=== PATIENT | female | born 1930 | race Caucasian/White ===

== ENCOUNTER 2017-07-04 14:36 | Emergency (ER) | payer MEDICARE ==
[2017-07-04 15:06] VITALS: BP 174/90
--- NOTE | 2017-07-04 15:30 | UC ---
Lower Extremity/Ankle HPI - HPI Summary HPI Summary: On Wednesday patient Road in the back of a car from [facility] to [facility] Wednesday she was up on her legs most the day and Wednesday night she was having extreme pain in her legs cramping in the back and lateral of her left calf. Patient has a niece who is a nurse who looked at it and said that she was very concerned about a DVT patient's here for evaluation of DVT. - History of Current Complaint Chief Complaint: UCLowerExtremity Stated Complaint: HURT L FOOT Time Seen by Provider: 07/04/17 14:57 Hx Obtained From: Patient, Family/Business Intelligence Architect Hx Last Menstrual Period: na ?: No Onset/Duration: Sudden Onset, Lasting Days - 1 Severity Initially: Moderate Severity Currently: Moderate Pain Intensity: 3 Pain Scale Used: 0-10 Numeric Aggravating Factor(s): Nothing Alleviating Factor(s): Nothing Able to Bear Weight: Yes - Allergies/Home Medications Allergies/Adverse Reactions: Allergies Allergy/AdvReac Type Severity Reaction Status Date / Time menthol Allergy Intermediate rash Verified 07/04/17 15:14 swelling Sulfa (Sulfonamide Allergy Intermediate Rash Verified 07/04/17 15:14 Antibiotics) amlodipine Allergy Unknown Verified 07/04/17 15:14 Reaction Details hydrochlorothiazide Allergy Unknown Verified 07/04/17 15:14 Reaction Details ramipril Allergy Unknown Verified 07/04/17 15:14 Reaction Details PMH/Surg Hx/FS Hx/Imm Hx Previously Healthy: No Cardiovascular History: Cardiac Disease, Hypertension GI/ History: Gastroesophageal Reflux Cancer History: Breast Cancer - Surgical History Surgical History: Unable to Obtain/Confirm Surgery Procedure, Year, and Place: TONSILLECTOMY AND ADENOIDECTOMY, [facility]. BILATERAL S & 0, [facility] [place] HYSTERECTOMY, [facility] [place]. LAPAROSCOPIC CHOLECYSTECTOMY, [facility] [place]. 2004 RIGHT BREAST MASTECTOMY WITH SENTINEL LYMPH NODE EXCISION, [facility] [place]. 2005 COLONOSCOPY, [facility] [place]. 2006 CARDIAC CATHERIZATION, [facility] [place]. 2006 QUADRUPLE BYPASS, [facility] - Family History Family History: Daughter with DVT - Social History Occupation: Retired Lives: Alone Alcohol Use: Rare Substance Use Type: None Smoking Status (MU): Former Smoker Type: Cigarettes Amount Used/How Often: 1 PPD FOR 28 YEARS Length of Time of Smoking/Using Tobacco: 15 years Have You Smoked in the Last Year: No When Did the Patient Quit Smoking/Using Tobacco: 1979 Review of Systems Constitutional: Negative Skin: Negative Eyes: Negative ENT: Negative Respiratory: Negative Cardiovascular: Negative Gastrointestinal: Negative Genitourinary: Negative Motor: Negative Neurovascular: Negative Musculoskeletal: Myalgia - left calf Neurological: Negative Psychological: Negative Is Patient Immunocompromised?: No All Other Systems Reviewed And Are Negative: Yes Physical Exam Triage Information Reviewed: Yes Appearance: Well-Appearing, No Pain Distress, Well-Nourished Vital Signs: Initial Vital Signs Temp 98.1 F 07/04/17 14:57 Pulse 66 07/04/17 14:57 Resp 20 07/04/17 14:57 BP 174/90 07/04/17 14:57 Pulse Ox 97 07/04/17 14:57 Vital Signs Reviewed: Yes Eye Exam: Normal Eyes: Positive: Conjunctiva Clear ENT Exam: Normal ENT: Positive: Normal ENT inspection, Hearing grossly normal, Pharynx normal. Negative: Trismus, Muffled voice, Hoarse voice Dental Exam: Normal Neck exam: Normal Neck: Positive: Supple, Nontender, No Lymphadenopathy Respiratory Exam: Normal Respiratory: Positive: Chest non-tender, Lungs clear, Normal breath sounds, No respiratory distress Cardiovascular Exam: Normal Cardiovascular: Positive: RRR, No Murmur, Pulses Normal, Brisk Capillary Refill Musculoskeletal Exam: Normal Musculoskeletal: Positive: Strength Intact, ROM Intact, Edema @ - left lower leg Neurological Exam: Normal Neurological: Positive: Alert, Muscle Tone Normal Psychological Exam: Normal Skin Exam: Normal Lower Extremity Course/Dx - Course Course Of Treatment: Patient spoke with daughter due to daughters past medical history with DVT patient's recent right knee automobile and swelling and then pain in her She's going to go to the emergency department for evaluation of DVT and ultrasound which I cannot provide here - Differential Dx/Diagnosis Provider Diagnoses: Left lower leg swelling, hypertension in poor control Discharge - Discharge Plan Condition: Stable Disposition: HOME Patient Education Materials: Leg Cramps (ED), Hypertension (ED) Referrals: Magy Peng MD [Primary Care Provider] - 1 Week Additional Instructions: Please go directly to the emergency department for further evaluation of the pain in your left lower leg
== END 2017-07-04 15:25 | disposition home or self-care (01) ==
LOC: UCEAST 14:36
DX: R22.42 Localized swelling, mass and lump, left lower limb (principal); I10 Essential (primary) hypertension; Z87.891 Personal history of nicotine dependence; Z82.49 Family history of ischemic heart disease and other diseases of the circulatory system; Z88.2 Allergy status to sulfonamides; Z88.8 Allergy status to other drugs, medicaments and biological substances
CPT/HCPCS: 99211; G0463

== ENCOUNTER 2017-07-04 15:43 | Emergency (ER) | payer MEDICARE ==
--- NOTE | 2017-07-04 16:55 | ED ---
Lower Extremity - HPI Summary HPI Summary: 87 female presents to ED from with concerns for a lower left leg DVT due to pain she had last night and swelling. States she was at her granddaughters wedding, dancing a lot and traveled to [facility]. Family is concerned for a DVT. No history of DVT. States pain was bad through the night and felt like muscle cramping in left ankle and lower calf. States she has elevated it and stretched it and pain has since subsided. Does still have some edema surrounding ankle b/l. Denies any recent injury or trauma. No bruising or redness. Is able to bear weight and walk without any pain. No other complaints. No medications taken for the pain. No cigarette use recently, former smoker. - History of Current Complaint Chief Complaint: EDExtremityLower Stated Complaint: POSS BLOOD CLOT Time Seen by Provider: 07/04/17 16:01 Hx Obtained From: Patient Hx Last Menstrual Period: na Mechanism Of Injury: Other - none Onset/Duration: Resolved - lasted hours last night, has since improved and only still swollen Severity Currently: None Pain Intensity: 0 Pain Scale Used: 0-10 Numeric Timing: Lasting Hours - since resolved Location: Is Discrete @ - left ankle lower calf Character Of Pain: Aching, Spasmodic - "Cramping" Associated Signs And Symptoms: Positive: Swelling Aggravating Factor(s): Nothing Alleviating Factor(s): Elevation Able to Bear Weight: Yes Legs: 1 - swelling today, pain last night - Allergies/Home Medications Allergies/Adverse Reactions: Allergies Allergy/AdvReac Type Severity Reaction Status Date / Time menthol Allergy Intermediate rash Verified 07/04/17 15:45 swelling Sulfa (Sulfonamide Allergy Intermediate Rash Verified 07/04/17 15:45 Antibiotics) amlodipine Allergy Unknown Verified 07/04/17 15:45 Reaction Details hydrochlorothiazide Allergy Unknown Verified 07/04/17 15:45 Reaction Details ramipril Allergy Unknown Verified 07/04/17 15:45 Reaction Details PMH/Surg Hx/FS Hx/Imm Hx Endocrine/Hematology History: Denies: Hx Diabetes, Hx Thyroid Disease Cardiovascular History: Reports: Hx Angina, Hx Coronary Artery Disease, Hx Hypercholesterolemia, Hx Hypertension Respiratory History: Reports: Hx Sleep Apnea - NO CPAP, Other Respiratory Problems/Disorders - ALL WAYS HAVE A RASPY VOICE ACCORDING TO PATIENT Denies: Hx Asthma, Hx Chronic Obstructive Pulmonary Disease (COPD) GI History: Reports: Hx Gastroesophageal Reflux Disease - CONTROL WITH MEDS Denies: Hx Ulcer Musculoskeletal History: Reports: Hx Arthritis - GENERALIZED, Other Musculoskeletal History - SCIATIC PAINS Denies: Hx Osteoporosis Sensory History: Reports: Hx Cataracts - BILATERAL, Hx Contacts or Glasses - GLASSES, Hx Glaucoma - SX OF Denies: Hx Hearing Aid Opthamlomology History: Reports: Hx Cataracts - BILATERAL, Hx Contacts or Glasses - GLASSES, Hx Glaucoma - SX OF Neurological History: Reports: Hx Migraine - HX OF, NONE FOR A LONG TIME - Cancer History Hx Chemotherapy: No Hx Radiation Therapy: No - Surgical History Surgery Procedure, Year, and Place: TONSILLECTOMY AND ADENOIDECTOMY, [facility]. BILATERAL S & 0, [facility] [place] HYSTERECTOMY, [facility] [place]. LAPAROSCOPIC CHOLECYSTECTOMY, [facility] [place]. 2004 RIGHT BREAST MASTECTOMY WITH SENTINEL LYMPH NODE EXCISION, [facility] [place] 2005 COLONOSCOPY, [facility] [place]. 2006 CARDIAC CATHERIZATION, [facility] [place]. 2006 QUADRUPLE BYPASS, [facility] Hx Anesthesia Reactions: No Infectious Disease History: Yes Infectious Disease History: Denies: Hx Hepatitis, Hx Human Immunodeficiency Virus (HIV), Traveled Outside the [place] in Last 30 Days - Family History Family History: Daughter with DVT - Social History Alcohol Use: Rare Substance Use Type: Reports: None Smoking Status (MU): Former Smoker Type: Cigarettes Amount Used/How Often: 1 PPD FOR 28 YEARS Length of Time of Smoking/Using Tobacco: 15 years Have You Smoked in the Last Year: No Review of Systems Constitutional: Negative Cardiovascular: Negative Respiratory: Negative Positive: Arthralgia, Myalgia, Edema - left ankle/lower calf Skin: Negative Neurological: Negative All Other Systems Reviewed And Are Negative: Yes Physical Exam Triage Information Reviewed: Yes Vital Signs On Initial Exam: Initial Vitals Temp Pulse Resp BP Pulse Ox 98.2 F 64 14 150/104 94 07/04/17 15:45 07/04/17 15:45 07/04/17 15:45 07/04/17 15:45 07/04/17 15:45 patient has HTN, medicated, BP at discharge improved Vital Signs Reviewed: Yes Appearance: Positive: Well-Appearing, No Pain Distress, Well-Nourished Skin: Positive: Warm, Skin Color Reflects Adequate Perfusion, Dry, Other - edema left ankle/lower calf. Negative: Cold, Numb, Cyanosis @, Pale, Erythema @ Eyes: Positive: Normal Neck: Positive: Supple Respiratory/Lung Sounds: Positive: Clear to Auscultation, Breath Sounds Present. Negative: Rales, Rhonchi, Wheezes Cardiovascular: Positive: Normal, RRR, Pulses are Symmetrical in both Upper and Lower Extremities - 2+ pedal. Negative: Murmur, Rub Musculoskeletal: Positive: Normal, Strength/ROM Intact, Edema Left - ankle lower calf/foot, Other - no crepitus, step off or obvious deformity no bruising or erythema. Negative: Limited @, Interruption @, Abnormal @, Pain @ Neurological: Positive: Normal, Sensory/Motor Intact, Alert, Oriented to Person Place, Time, Reflexes Intact, NV Bundle Intact Distally, Normal Gait Diagnostics - Vital Signs Vital Signs Temp Pulse Resp BP Pulse Ox 07/04/17 15:45 98.2 F 64 14 150/104 94 - Laboratory Lab Statement: Any lab studies that have been ordered have been reviewed, and results considered in the medical decision making process. - Ultrasound No standard instances Ultrasound Interpretation: No Acute Changes - no sonographic evidence of DVT Ultrasound Interpretation Completed By: Radiologist Re-Evaluation - Re-Evaluation First Eval Re-Evaluation Time: 17:24 Change: Unchanged - still without pain, updated on US report. patient agrees and understands plan, ready to be d/c Lower Extremity Course/Dx - Course Course Of Treatment: ultrasound obtained to rule out DVT as this was both patient and families concern. Is currently without pain. Only noteable finding on physical exam is swelling of left ankle/lower calf/foot. no other signs of trauma. no pain and FROM. Possible inflammation/strain from patient's dancing and excessive use over the weekend. Patient states she feels better and has not had pain since waking up this morning and elevating it. thinks it may be from the dancing, in whicih I agree has physical exam and area of edema is unlikely a DVT. Ultrasound negative for DVT. appears to be suffering from inflammation/ strain. RICE and analgesic. follow up with pcp tomorrow to ensure improvement. aware of worsening signs and symptoms to watch out for. applied petr wrap for compression. no other concerns at this time. good arterial supply and no concern for any infection/gout. - Diagnoses Differential Diagnosis/HQI/PQRI: Positive: DVT, Sprain, Strain, Other - edema Provider Diagnoses: Edema of left ankle, Muscle cramp, nocturnal, Foot pain, left, Hypertension, poor control Discharge - Discharge Plan Condition: Good Disposition: HOME Patient Education Materials: Arthralgia (ED), Muscle Cramp (ED) Referrals: Magy Peng MD [Primary Care Provider] - Additional Instructions: Increase fluid intake. Take tylenol/ibuprofen for pain/inflammation.. Rest, ice and elevate. Avoid over use. Follow up with PCP in 2 days to ensure improvement, sooner if needed. Also to better control HTN. Any new or worsening symptoms, as we discussed, please return to ED promptly.
--- NOTE | 2017-07-04 17:42 | RAD ---
HISTORY: Left leg pain TECHNIQUE: Multiple transverse and longitudinal ultrasound images were obtained of the veins of the left lower extremity using grayscale, color Doppler, and spectral Doppler imaging with and without compression and with augmentation. FINDINGS: VEINS: The common femoral vein, deep femoral vein, femoral vein and popliteal vein are compressible throughout their course, with normal flow on color Doppler imaging and normal response to augmentation on spectral Doppler imaging. SOFT TISSUES: Grossly normal. No large popliteal fossa cyst was identified. IMPRESSION: No sonographic evidence of deep vein thrombosis.
[2017-07-04 17:48] VITALS: BP 201/89
== END 2017-07-04 17:47 | disposition home or self-care (01) ==
LOC: ED 15:43
DX: R60.0 Localized edema (principal); R25.2 Cramp and spasm; M79.672 Pain in left foot; I10 Essential (primary) hypertension; Z82.49 Family history of ischemic heart disease and other diseases of the circulatory system; Z87.891 Personal history of nicotine dependence; Z88.2 Allergy status to sulfonamides; Z88.8 Allergy status to other drugs, medicaments and biological substances
CPT/HCPCS: 99282

== ENCOUNTER 2018-09-22 19:52 | Observation (INO) | payer MEDICARE ==
--- NOTE | 2018-09-22 20:32 | ED ---
Lower Extremity - HPI Summary HPI Summary: An 88 y/o female presents to [facility] with a chief complaint of left leg pain. She reports that her left leg has been swollen and sore "for a while" but notes that her left knee "gave out" today when she was walking up two stairs. At triage she rated her pain as a 9/10 in severity. Bending her knee aggravates her pain. She also notes that her cheeks are red. The patient denies a Hx of arthritis or DM, but the patient reports neuropathy of her feet. The patient denies taking any pain medication. The patient walks without help. - History of Current Complaint Chief Complaint: EDExtremityLower Stated Complaint: LEFT LEG SWELLING AND PAIN PER EMS Time Seen by Provider: 09/22/18 20:29 Hx Obtained From: Patient Hx Last Menstrual Period: na Mechanism Of Injury: Unknown Onset of Pain: Days, Prior to Arrival Onset/Duration: Still Present Severity Initially: Severe Severity Currently: Severe Pain Intensity: 9 Pain Scale Used: 0-10 Numeric Timing: Constant Location: Other - left leg Character Of Pain: Unable To Describe Associated Signs And Symptoms: Positive: Swelling, Knee Pain. Negative: Fever Aggravating Factor(s): Other - bending knee Alleviating Factor(s): Nothing - Allergies/Home Medications Allergies/Adverse Reactions: Allergies Allergy/AdvReac Type Severity Reaction Status Date / Time menthol Allergy Intermediate rash Verified 07/04/17 15:45 swelling Sulfa (Sulfonamide Allergy Intermediate Rash Verified 07/04/17 15:45 Antibiotics) amlodipine Allergy Unknown Verified 07/04/17 15:45 Reaction Details hydrochlorothiazide Allergy Unknown Verified 07/04/17 15:45 Reaction Details ramipril Allergy Unknown Verified 07/04/17 15:45 Reaction Details PMH/Surg Hx/FS Hx/Imm Hx Endocrine/Hematology History: Denies: Hx Diabetes, Hx Thyroid Disease Cardiovascular History: Reports: Hx Angina, Hx Coronary Artery Disease, Hx Hypercholesterolemia, Hx Hypertension Respiratory History: Reports: Hx Sleep Apnea - NO CPAP, Other Respiratory Problems/Disorders - ALL WAYS HAVE A RASPY VOICE ACCORDING TO PATIENT Denies: Hx Asthma, Hx Chronic Obstructive Pulmonary Disease (COPD) GI History: Reports: Hx Gastroesophageal Reflux Disease - CONTROL WITH MEDS Denies: Hx Ulcer Musculoskeletal History: Reports: Hx Arthritis - GENERALIZED, Other Musculoskeletal History - SCIATIC PAINS Denies: Hx Osteoporosis Sensory History: Reports: Hx Cataracts - BILATERAL, Hx Contacts or Glasses - GLASSES, Hx Glaucoma - SX OF Denies: Hx Hearing Aid Opthamlomology History: Reports: Hx Cataracts - BILATERAL, Hx Contacts or Glasses - GLASSES, Hx Glaucoma - SX OF Neurological History: Reports: Hx Migraine - HX OF, NONE FOR A LONG TIME - Cancer History Hx Chemotherapy: No Hx Radiation Therapy: No - Surgical History Surgery Procedure, Year, and Place: TONSILLECTOMY AND ADENOIDECTOMY, [facility]. BILATERAL S & 0, [facility] [place]. HYSTERECTOMY, [facility] [place]. LAPAROSCOPIC CHOLECYSTECTOMY, [facility] [place]. 2004 RIGHT BREAST MASTECTOMY WITH SENTINEL LYMPH NODE EXCISION, [facility] [place]. 2005 COLONOSCOPY, [facility] [place]. 2006 CARDIAC CATHERIZATION, [facility] [place]. 2006 QUADRUPLE BYPASS, [facility] [employer] Hx Anesthesia Reactions: No Infectious Disease History: No Infectious Disease History: Denies: Hx Hepatitis, Hx Human Immunodeficiency Virus (HIV), Traveled Outside the in Last 30 Days - Family History Known Family History: Positive: Other Family History: Daughter with DVT - Social History Alcohol Use: Rare Substance Use Type: Reports: None Smoking Status (MU): Former Smoker Type: Cigarettes Amount Used/How Often: 1 PPD FOR 28 YEARS Length of Time of Smoking/Using Tobacco: 15 years Have You Smoked in the Last Year: No Review of Systems Negative: Fever Positive: Myalgia - left leg pain, Other - positive: left leg swelling Positive: Other - positive: cheeks are red All Other Systems Reviewed And Are Negative: Yes Physical Exam - Summary Physical Exam Summary: VITAL SIGNS: Reviewed. GENERAL: Patient is a well-developed and nourished FEMALE who is lying comfortable in the stretcher. Patient is not in any acute respiratory distress. HEAD AND FACE: No signs of trauma. No ecchymosis, hematomas or skull depressions. No sinus tenderness. EYES: PERRLA, EOMI x 2, No injected conjunctiva, no nystagmus. EARS: Hearing grossly intact. Ear canals and tympanic membranes are within normal limits. MOUTH: Oropharynx within normal limits. NECK: Supple, trachea is midline, no adenopathy, no JVD, no carotid bruit, no c- spine tenderness, neck with full ROM CHEST: Symmetric, no tenderness at palpation LUNGS: Clear to auscultation bilaterally. No wheezing or crackles. CVS: Regular rate and rhythm, S1 and S2 present, no murmurs or gallops appreciated. ABDOMEN: Soft, non-tender. No signs of distention. No rebound no guarding, and no masses palpated. Bowel sounds are normal. EXTREMITIES: mild tenderness over left knee, decreased ROM secondary to pain, neuro exam intact distally NEURO: Alert and oriented x 3. No acute neurological deficits. Speech is normal and follows commands. SKIN: Dry and warm Triage Information Reviewed: Yes Vital Signs On Initial Exam: Initial Vitals Temp Pulse Resp BP Pulse Ox 98.0 F 70 18 222/105 91 09/22/18 19:59 09/22/18 19:59 09/22/18 19:59 09/22/18 19:59 09/22/18 19:59 Vital Signs Reviewed: Yes Diagnostics - Vital Signs Vital Signs Temp Pulse Resp BP Pulse Ox 09/22/18 19:59 98.0 F 70 18 222/105 91 - Laboratory Result Diagrams: 09/23/18 00:51 09/23/18 00:51 Lab Statement: Any lab studies that have been ordered have been reviewed, and results considered in the medical decision making process. - Radiology knee x-ray Radiology Interpretation Completed By: ED Physician Summary of Radiographic Findings: No fracture seen. Pending official imaging report. CXR Radiology Interpretation Completed By: ED Physician Summary of Radiographic Findings: no acute process. Pending official imaging report. - CT lower extremity CT Interpretation Completed By: Radiologist Summary of CT Findings: 1. No acute findings. Degenerative change of left knee. 2. Small high density focus in the lateral compartment of the knee may. represent a loose intra-articular body. ED physician has reviewed this imaging report. Re-Evaluation - Re-Evaluation First Eval Re-Evaluation Time: 21:33 Change: Unchanged Comment: Pt still having pain. Second Eval Re-Evaluation Time: 23:41 Change: Unchanged Comment: Pt has difficulty ambulating with walker because of pain in knee after being medicated with Ultram and Morphine. Pt reports that she does not feel safe and does not want to go home. Lower Extremity Course/Dx - Course Course Of Treatment: An 88 y/o female presents to [facility] with a chief complaint of left leg pain. She reports that her left leg has been swollen and sore "for a while" but notes that her left knee "gave out" today when she was walking up two stairs. The physical exam revealed mild tenderness over left knee, decreased ROM secondary to pain, neuro exam intact distally. Knee x-ray showed no fracture. In the ED course the patient was given Ultram PO, Morphine IM and compazine IM. Lower extremity CT impression: 1. No acute findings. Degenerative change of left knee. 2. Small high density focus in the lateral compartment of the knee may. represent a loose intra-articular body. Upon re-eval Pt has difficulty ambulating with walker because of pain in knee after being medicated with Ultram and Morphine. Pt reports that she does not feel safe and does not want to go home. CXR showed no acute process. Case discussed with Dr. Dee, hospitalist, who accepted the patient for admission. The patient is agreeable with this plan. - Diagnoses Provider Diagnoses: Left knee pain - Physician Notifications Discussed Care Of Patient With: Jama Dee Time Discussed With Above Provider: 01:45 Instructed by Provider To: Admit As Inpatient Discharge - Sign-Out/Discharge Documenting (check all that apply): Patient Departure - admit Patient Received Moderate/Deep Sedation with Procedure: No - Discharge Plan Condition: Fair Disposition: ADMITTED TO [facility] - Billing Disposition and Condition Condition: FAIR Disposition: Admitted to [facility] - Attestation Statements Document Initiated by Scribe: Yes Documenting Scribe: Miki Joaquin Provider For Whom Saundra is Documenting (Include Credential): Aamir Rodgers MD Scribe Attestation: Miki Mclean, scribed for Aamir Rodgers MD on 09/23/18 at 0547. Scribe Documentation Reviewed: Yes Provider Attestation: The documentation as recorded by the Miki weeks accurately reflects the service I personally performed and the decisions made by me, Aamir Rodgers MD Status of Scribe Document: Viewed
[2018-09-22] MEDS ORDERED: traMADol TAB* 50 MG PO ONE (20:43)
[2018-09-22] MEDS ORDERED: Morphine 4 MG/ML VIAL (1 ml) 4 MG/ML VIAL IM ONE (21:38)
[2018-09-22] MEDS ORDERED: PROCHLORPERAZINE INJ 5 MG/ML 2 ML VIAL IM ONE (21:39)
[2018-09-23 01:09] LABS: ABS Basophils 0.1 10^3/ul (0-0.2); ABS Eosinophils 0.3 10^3/ul (0-0.6); ABS Lymphocytes 1.5 10^3/ul (1.0-4.8); ABS Monocytes 0.7 10^3/ul (0-0.8); Eosinophil % 3.5 %; Hematocrit 42 % (35-47); Hemoglobin 14.4 g/dL (12.0-16.0); Lymphocyte % 19.9 %; Mean Corpuscular HGB Conc 34 g/dL (31-36); Mean Corpuscular Hemoglobin 32 pg (27-31); Mean Corpuscular Volume 94 fL (80-97); Mean Platelet Volume 9.1 fL (7.4-10.4); Platelet Count 201 10^3/uL (150-450); Red Blood Count 4.53 10^6 /uL (3.70-4.87); Red Cell Distribution Width 14 % (10-15); White Blood Count 7.5 10^3/uL (3.5-10.8)
[2018-09-23 01:17] LABS: Activated Partial Thrombo Time 34.9 seconds (26.0-38.0); INR 1.12 (0.82-1.09)
[2018-09-23 01:26] LABS: ALT 23 U/L (7-52); AST 26 U/L (13-39); Albumin 4.3 g/dL (3.2-5.2); Alkaline Phosphatase 57 U/L (34-104); Anion Gap 8 mmol/L (2-11); Blood Urea Nitrogen 17 mg/dL (6-24); CO2 Carbon Dioxide 29 mmol/L (22-32); Calcium 9.7 mg/dL (8.6-10.3); Chloride 104 mmol/L (101-111); EGFR African American 76.7 (>60); EGFR Non-African American 63.4 (>60); Globulin 2.2 g/dL (2-4); Glucose 109 mg/dL (70-100); Magnesium 1.9 mg/dL (1.9-2.7); Potassium 3.8 mmol/L (3.5-5.0); Sodium 141 mmol/L (135-145); Total Protein 6.5 g/dL (6.4-8.9)
[2018-09-23] MEDS ORDERED: Ondansetron INJ* 2 MG/ML VIAL IV PRN (01:45)
[2018-09-23] MEDS ORDERED: Ibuprofen TAB* 600 MG PO PRN (01:47)
[2018-09-23] MEDS ORDERED: hydrALAZINE IV* 20 MG/ML VIAL IV SLOW PU PRN ×2 (01:52→04:32)
--- NOTE | 2018-09-23 07:05 | HP ---
CC: Dr. Magy Peng * HISTORY AND PHYSICAL: DATE OF ADMISSION: 09/23/18 PRIMARY CARE PROVIDER: Dr. Magy Peng. HEALTHCARE PROXY: Her daughter, Lucía. CODE STATUS: Full. CHIEF COMPLAINT: Left leg pain. HISTORY OF PRESENT ILLNESS: This is an 88-year-old female with past medical history including CAD, status post CABG, as well as breast cancer, status post right mastectomy and in her feet, has been in her usual state of health. Lives in the home with minimal stairs except for 2 exiting to the garage, which she used to exit today to move her car and upon returning, going up the 2 stairs , she experienced sudden onset of a worsening chronic pain that she experiences in her left lateral leg causing buckling to her knees and then an inability to walk. The patient indicates that she persistently has pain in her left lateral leg extending from her ankle to above her knee. However, after the sudden worsening, she was unable to use the leg at all, particularly worse with standing. The pain was identified from approximately 2 inches above her ankle to approximately 6 inches above her knee on the lateral aspect of her left leg. Otherwise, she has been feeling quite well, had no other recent illnesses, fever, chills, or night sweats. No chest pain or shortness of breath. When she fell to her knees, she did not strike them with significant force nor did she lose consciousness or strike her head. PAST MEDICAL HISTORY: Includes CAD, status post CABG in 2005; hypertension; breast cancer, status post right mastectomy, no chemotherapy; history of glaucoma; cataract; history of hysterectomy; cholecystectomy; tonsillectomy. MEDICATIONS: Home medications unable to confirm with the patient, has limited knowledge of her medications, a prior note from 2012 indicated: 1. Aspirin. 2. Atorvastatin. 3. Citrucel. 4. Vitamin D. 5. Hydrochlorothiazide. 6. Triamterene. 7. Eye capsule. 8. Labetalol. 9. Lopid. 10. Nexium. 11. Potassium. 12. Reclast. 13. Tylenol. 14. Vitamin D. However, in the interim hydrochlorothiazide has been added as an allergy, this is clearly incorrect after 6 years. ALLERGIES: To MENTHOL, SULFA, AMLODIPINE, HYDROCHLOROTHIAZIDE, and RAMIPRIL. FAMILY HISTORY: Diabetes. SOCIAL HISTORY: Quit tobacco in 1977 on . Drinks approximately 1 alcoholic drink per week. No illicits. She is a . REVIEW OF SYSTEMS: As per HPI. Otherwise, all other systems negative. PHYSICAL EXAMINATION GENERAL: An 88-year-old female, appears her stated age, is not younger than her stated age. Interactive, pleasant, no apparent distress. VITAL SIGNS: In the emergency room, 158/92, heart rate 70, respiratory rate of 16, she is 96% on 2 L and 90% on room air, T-max in the emergency room is 98. HEENT: Oropharynx is clear. She has moist mucous membranes. Sclerae are anicteric. LUNGS: Her lungs are clear to auscultation throughout. HEART: She has a soft 2/6 systolic ejection murmur with a regular rate and rhythm. ABDOMEN: Soft, nontender, and nondistended. EXTREMITIES: Warm and well perfused with trace bilateral lower extremity pitting edema. She has tenderness in her left lateral lower extremity most significant approximately 6 inches above her left ankle, again extending approximately 6 inches above her left knee. She has intact strength in her foot with extension, but limited by pain with flexion in her foot. She has full range of motion in her knee and her hip with some limitation again to extension at her knee limited by pain. There were attempts to ambulate the patient in the emergency room, she was unable to bear weight on her left extremity. DIAGNOSTIC STUDIES/LAB DATA: Pertinent labs reviewed. There are no labs to review. Pertinent data: Lower extremity CAT scan, the impression is no acute findings, although there are degenerative changes in the left knee and a small high intensity focus in the left lateral compartment of the knee that may represent a loose intraarticular body. ASSESSMENT AND PLAN: This is an 88-year-old female with past medical history as outlined above suffered sudden onset of worsening chronic pain in her left lateral leg, which did not include her knee, limiting her ability to ambulate and care for herself at home. 1. Left pain. The patient has worsening pain, suspect a muscle and/or ligamentous strain. Recommend for rest, ice, elevation, and nonsteroidal antiinflammatories. Prescribe the patient ibuprofen, Tylenol while she is in the hospital. She has minimal pain while at rest. Physical therapy evaluation tomorrow. I had a prolonged conversation with the patient regarding possible denial of coverage and fci admission. I also explained this with her daughter, Lucía, over the telephone. Currently, nobody is available to retrieve the patient from the hospital nor care for her overnight. Everyone involved including the patient requesting admission to the hospital. The patient was given __pre adimission denial of ___ coverage paperwork discussed with the patient, she signed prior to admission. 2. Hypertension, particularly elevated at this conversation. We will start home medications as understood from prior medication list, although understood this is likely inaccurate after many years. Oral antihypertensives to include labetalol, amiloride, and hydralazine p.r.n. for systolic blood pressures greater than 180. 3. Coronary artery disease. Continue aspirin and atorvastatin. 4. DVT prophylaxis is enoxaparin. [id number]/[facility] #: [id number] RED
[2018-09-23 08:13] LABS: Urine Appearance Clear; Urine Bacteria Absent (Absent); Urine Bilirubin Negative (Negative); Urine Blood Negative (Negative); Urine Color Yellow; Urine Glucose Negative (Negative); Urine Ketones Negative (Negative); Urine Nitrite Positive (Negative); Urine Protein Negative (Negative); Urine Red Blood Cell Trace(0-2/hpf) (Absent); Urine Specific Gravity 1.012 (1.010-1.030); Urine Urobilinogen Negative (Negative); Urine White Blood Cell 3+(>20/hpf) (Absent)
[2018-09-23] MEDS: Pantoprazole TAB * 40 MG TAB PO SCH (08:16)
[2018-09-23] MEDS: Ascorbic Acid TAB* 500 MG PO SCH (08:16)
[2018-09-23] MEDS: Aspirin EC TAB* 81 MG TAB.EC PO SCH (08:16)
[2018-09-23] MEDS: Labetalol TAB* 200 MG PO SCH ×2 (08:17→21:02)
[2018-09-23] MEDS: Acetaminophen TAB* 325 MG PO PRN ×2 (08:20→21:02)
[2018-09-23] MEDS ORDERED: aMILoride TAB* 5 MG PO SCH (09:00)
[2018-09-23 09:44] LABS: C Reactive Protein < 1.00 mg/L (<8.01)
[2018-09-23] MEDS: Enoxaparin(*) 40 MG/0.4 ML SYR SUBCUT SCH (10:04)
[2018-09-23] MEDS: Hydrochlorothiazide TAB* 25 MG PO SCH (10:04)
[2018-09-23] MEDS ORDERED: Atorvastatin* 40 MG TAB PO SCH (21:00)
[2018-09-23] MEDS ORDERED: Atorvastatin* 20 MG TAB PO SCH (21:00)
--- NOTE | 2018-09-23 23:22 | CONS ---
ORTHOPEDIC CONSULT NOTE: DATE OF CONSULT: 09/23/18 CHIEF COMPLAINT: Left knee and leg pain. HISTORY OF PRESENT ILLNESS: Ms. Kent is an 88-year-old female. I am consulted orthopedically fo r left knee and leg pain. The patient presented to [facility] today with difficulty ambul ating, buckling of her left knee and inability to walk. She denied any specific trauma. She describ ed pain along her left lateral knee and lateral leg. The patient reports that this pain was 10/10 wi th weakness and instability making her unable to walk at all. She is brought to [facility] after a fall and she was unable to return to home because of inability to ambulate and for social r easons. I am consulted for orthopedic care. Today, during the consultation, the patient tells me her knee pa in is already improving. She does have known arthritis in this knee. PAST MEDICAL HISTORY: Coronary artery disease status post CABG, hypertension, breast cancer, status post mastectomy, glaucoma, cataracts. PAST SURGICAL HISTORY: Mastectomy, CABG, cholecystectomy, hysterectomy, tonsillectomy. HOME MEDICATIONS: 1. Aspirin. 2. Atorvastatin. 3. Citrucel. 4. Vitamin D. 5. Hydrochlorothiazide. 6. Triamterene. 7. Eye capsules. 8. Labetalol. 9. Lopid. 10. Nexium. 11. Potassium. 12. Reclast. 13. Tylenol. 14. Vitamin D. ALLERGIES: RAMIPRIL, AMLODIPINE, MENTHOL, SULFA. FAMILY HISTORY: Diabetes. SOCIAL HISTORY: The patient is a . She lives alone. She has a daughter in town. No tobacco . Minimal alcohol use. No recreational drugs. She reports she normally ambulates independently. REVIEW OF SYSTEMS: Fourteen systems reviewed with the patient today. Positive for left knee pain an d leg pain, left lower extremity weakness, recent fall. She denies fever, chills, chest pain, shortn ess of breath, nausea, vomiting, headache, or dizziness. Otherwise, the patient reports review of sy stems is negative or not relevant. PHYSICAL EXAM: General: The patient is a well-nourished female, in no apparent distress. Alert and oriented x3, pleasant mood and appropriate affect. Gait is not assessed. Vitals: Temperature 98.5 , pulse 86, respiratory rate 16, blood pressure 125/63, 93% oxygen saturation on 2 L. left lower ext remity: The patient's skin is intact. No abrasions or open wounds. No palpable masses or lymph nod es. She has 12 degree valgus deformity at the knee. Tenderness along and the medial and lateral paul nt line of the knee. Mild effusion. Scattered varicosities. She has full extension to 120 degrees of flexion at the knee. No varus or valgus instability, although there is some MCL laxity. Tenderne ss along the lateral joint line and lateral compartment of the leg distally. 5/5 ankle dorsiflexion, plantar flexion strength. Full sensation to light touch in all nerve distributions and 2+ palpable DP pulse. DIAGNOSTIC STUDIES/LAB DATA: Radiographs: Multiple plain films and CT scan show some degenerative c hanges in the left knee. No obvious fracture. Laboratory values show leukocyte esterase, white blood cells, but no bacteria in the urine. White bl ood cell 7.5, hematocrit 42, platelets 201. INR 1.12. Sodium 141, potassium 3.8, BUN and creatinine 17 and 0.85. ASSESSMENT AND PLAN: Ms. Kent is an 88-year-old female with acute onset of left leg and knee carlos n with weakness. Today, the patient and I discussed that she likely has an osteoarthritis flare up. Her valgus knee could give her feelings of instability and cause her to fall. I see no obvious fracture on plain films or CT scan. I would recommend ambulating with a rolling wal ker and mobilizing this patient with physical therapy. She should be weightbearing as tolerated on t he left lower extremity. The patient is given my card. She should follow up with me for outpatient care for the left knee art hritis when she is released from the hospital. We can discuss brace wear versus injections. I can g et weight bearing films at that time. Thank you for this orthopedic consultation and please call with any questions. [id number]/[facility] #: [id number]
[2018-09-24] MEDS: Aspirin EC TAB* 81 MG TAB.EC PO SCH (08:39)
[2018-09-24] MEDS: Pantoprazole TAB * 40 MG TAB PO SCH (08:39)
[2018-09-24] MEDS: Hydrochlorothiazide TAB* 25 MG PO SCH (08:39)
[2018-09-24] MEDS: Ascorbic Acid TAB* 500 MG PO SCH (08:39)
[2018-09-24] MEDS: Labetalol TAB* 200 MG PO SCH (08:39)
[2018-09-24] MEDS ORDERED: aMILoride TAB* 5 MG PO SCH (09:00)
[2018-09-24] MEDS ORDERED: Potassium Chlor TAB* 20 MEQ TAB.ER PO SCH (10:00)
--- NOTE | 2018-09-24 10:02 | PN ---
Progress Note - Progress Note Date of Service: 09/24/18 SOAP: Subjective: Pt. is alert, reports L knee is feeling much better today. 2/10 pain lateral leg and knee. Objective: Vital Signs: Temp Pulse Resp BP Pulse Ox 97.2 F 78 18 129/63 92 09/24/18 07:09 09/24/18 07:09 09/24/18 08:00 09/24/18 07:09 09/24/18 07:09 LLE - skin intact, knee with mild effusion, active 5-120 flexion at knee, mild ttp lcl and lateral leg. calf is soft. distally nvi. Assessment: 88 yo F with L knee osteoarthritic flare-up acutely, inability to ambulate yesterday. Plan: She is much improved. She will follow with me as an outpatient in clinic, she is given card/phone number. Recommend wbat with rolling walker for fall precaution. Mobilize with PT. Prn analgesia.
[2018-09-24] MEDS: Enoxaparin(*) 40 MG/0.4 ML SYR SUBCUT SCH (11:06)
[2018-09-24 11:30] VITALS: BP 127/62
--- NOTE | 2018-09-25 12:41 | DS ---
CC: Dr. Krystal Crocker DISCHARGE SUMMARY: DATE OF ADMISSION: 09/22/18 DATE OF DISCHARGE: 09/24/18 DISCHARGE DIAGNOSES: 1. Osteoarthritis of the left knee, acute exacerbation. 2. Coronary artery disease status post coronary artery bypass surgery. 3. Dyspnea on exertion with intermittent shortness of breath. 4. Hypertension. 5. Hyperlipidemia. 6. History of gastroesophageal reflux disease. 7. History of diverticulosis. 8. Personal history of colonic polyps. 9. History of mitral regurgitation. 10. History of carotid artery stenosis. 11. Positive urine culture for Klebsiella pneumoniae, probable urinary colonization rather than urinary tract infection. HISTORY: Giselle Kent is an 88-year-old woman admitted with severe left knee pain. Please see the dictated admission note for details of the present illness , past medical history, family history, social and personal history, review of systems and physical examination. DIAGNOSTIC STUDIES/LAB DATA: CBC: WBC 7.5, H and H 14.4/42, MCV 94, PLT 201, 000. INR 1.12, PTT 34.9. Chemistries: Sodium 141, potassium 3.8, chloride 104 , CO2 of 29, BUN and creatinine 17/0.85, glucose 109. Rest of her comprehensive metabolic panel was within normal limits. CRP normal at less than 1. BNP normal at 28. Urinalysis: Yellow, clear; specific gravity 1.012. Dipstick is positive for nitrite, esterase trace, wbc's 3+. Urine culture positive for Klebsiella pneumoniae, sensitive to all antibiotics tested except for ampicillin and intermediate to nitrofurantoin. Imaging: Chest x-ray showed no active cardiopulmonary disease. Surgical clips noted in the mediastinum status post median sternotomy noted. Knee x-ray on 09/22/18 showed no evidence of fracture. [id number] osteoarthritic change, chondrocalcinosis. Lower extremity CT 09/22/18 showed no acute findings, degenerative changes of the left knee, small high density focused in the lateral compartment of the knee , possible loose intraarticular body. CONSULTATION: Orthopedic, Dr. Crocker 09/23/18, felt that the patient had presented with difficulty ambulating, buckling of her left knee, inability to walk, described as pain along the left lateral knee and lateral leg. Pain 10/ 10 with weakness and instability after having fallen at home. Dr. Crocker felt that the patient likely had an osteoarthritis flare-up with her valgus knee giving her feelings of instability and causing her to fall. She saw no fracture. She recommended ambulating with rolling walking, mobilizing with physical therapy, weightbearing as tolerated. She gave the patient her card so that she could follow up with her for outpatient care for the left knee arthritis after released from the hospital, brace versus injections. She also said she could get weightbearing as tolerated. Physical therapy evaluation on , she felt that she needed rolling walker and that she might benefit from physical therapy. HOSPITAL COURSE: The patient was initially admitted on 09/23/18, felt to have possible muscle and/or ligamentous strain. Recommendation was for rest, ice, elevation, NSAIDs. She was prescribed ibuprofen and Tylenol while in the hospital. She was noted to have elevated blood pressure initially. She was started on home medications. Hydralazine was ordered as well. She was placed on DVT prophylaxis with enoxaparin. Medications she received while in the hospital were her usual medications, morphine once and hydralazine for elevated blood pressure. She was in considerable pain initially, but her pain improved over the course of her hospital stay. By 09/24/18, she was up getting to the bathroom with a walker. She was feeling much better. She felt that she could manage at home. I spoke with her daughters on the phone, Lucía and Felecia. They were going to help the patient. At the time of discharge, she was walking with a walker to the bathroom. The daughter has expressed concern about the low oxygen she had had in the hospital. The patient was noted to be initially hypoxemic but by the time of discharge, her O2 sats were over 90 on room air. She said that she had been having dyspnea on exertion since her bypass surgery, did not feel it was very different. We discussed possible further workup for this as an outpatient. I did not feel she needed home oxygen. DISCHARGE MEDICATIONS: At the time of discharge, she is to be on the following medications: 1. Amiloride/hydrochlorothiazide 5/50 one half daily. 2. Fish oil 1 daily. 3. Eye vitamins 1 daily. 4. Magnesium oxide 1 daily. 5. Glucosamine sulfate 2 daily. 6. Esomeprazole 20 mg 1 daily. 7. Vitamin D3 2000 units 1 a day. 8. Atorvastatin 20 mg daily. 9. Aspirin 81 mg daily. 10. Ascorbic acid 1 daily. 11. B12 1000 mcg daily. 12. Labetalol 200 mg twice a day. 13. Potassium chloride 20 mEq 1 a day. FOLLOWUP: She is to follow up with me in my office in 1 to 2 weeks. She will also be getting [facility]; to set up an appointment, she will call them. DIET: Usual. DISPOSITION: She is being discharged to home in improved condition. [id number]/[facility] #: [id number] RED
== END 2018-09-24 11:55 | disposition home or self-care (01) ==
LOC: ED 19:52 → MED 09-23 01:45
PROVIDERS: ADMIT Internal Medicine; ATTEND Internal Medicine Geriatric Medicine
DX: M17.12 Unilateral primary osteoarthritis, left knee (principal); I25.10 Atherosclerotic heart disease of native coronary artery without angina pectoris; Z95.5 Presence of coronary angioplasty implant and graft; R06.00 Dyspnea, unspecified; I10 Essential (primary) hypertension; E78.5 Hyperlipidemia, unspecified; K21.9 Gastro-esophageal reflux disease without esophagitis; K57.90 Diverticulosis of intestine, part unspecified, without perforation or abscess without bleeding; I34.0 Nonrheumatic mitral (valve) insufficiency; B96.1 Klebsiella pneumoniae [K. pneumoniae] as the cause of diseases classified elsewhere; Z79.82 Long term (current) use of aspirin; Z88.2 Allergy status to sulfonamides; Z85.3 Personal history of malignant neoplasm of breast
CPT/HCPCS: 36415; 71045; 80053; 81003; 81015; 83735; 83880; 85025; 85610; 85730; 86140; 87077; 87086; 87186; 96372; 96374; 96376; 99284; A9270-GY; G0378; G8978-GP-CK; G8979-GP-CH; J0360; J0780; J1650; J2270

== ENCOUNTER 2019-02-16 16:23 | Emergency (ER) | payer MEDICARE ==
--- NOTE | 2019-02-16 18:39 | ED ---
Head Injury - HPI Summary HPI Summary: Patient is an 88 y/o F presenting to the ED via EMS for a chief complaint of head injury that occurred on 02/16/19. Patient is present with her grandson. Patient was entering a [employer] when patient fell and hit her head after tripping on a step. Patient has not walked since she fell. Patient admits facial pain, blood from the bilateral nares, soreness on the left arm, and bilateral UE and LE problems that are at baseline. Patient denies syncope. Patient denies taking blood thinners. Patient admits PMHx of HTN for which she takes medications daily. Patient denies tobacco use or drug use, but admits alcohol use once a week. Patients is unsure when she last had a tetanus vaccination. Patient sees Dr. Peng. Allergies noted. Medications reviewed. - History Of Current Complaint Chief Complaint: EDFall Stated Complaint: FALL INJ PER EMS Time Seen by Provider: 02/16/19 16:45 Hx Obtained From: Patient Hx Last Menstrual Period: na Mechanism Of Injury: Fall From A Standing Position Onset/Duration: Traumatic, Still Present Onset of Pain: Immediate Severity Currently: Severe Severity Initially: Severe Pain Intensity: 8 Pain Scale Used: 0-10 Numeric Location of Head Injury: Diffuse Associated Signs And Symptoms: Other: - Positive facial pain, blood from both nares, soreness of left arm, bilateral UE and LE problems at baseline. - Allergies/Home Medications Allergies/Adverse Reactions: Allergies Allergy/AdvReac Type Severity Reaction Status Date / Time menthol Allergy Intermediate rash Verified 07/04/17 15:45 swelling Sulfa (Sulfonamide Allergy Intermediate Rash Verified 07/04/17 15:45 Antibiotics) amlodipine Allergy Unknown Verified 07/04/17 15:45 Reaction Details hydrochlorothiazide Allergy Unknown Verified 07/04/17 15:45 Reaction Details ramipril Allergy Unknown Verified 07/04/17 15:45 Reaction Details PMH/Surg Hx/FS Hx/Imm Hx Previously Healthy: Yes Endocrine/Hematology History: Denies: Hx Diabetes, Hx Thyroid Disease Cardiovascular History: Reports: Hx Angina, Hx Coronary Artery Disease, Hx Hypercholesterolemia, Hx Hypertension Respiratory History: Reports: Hx Sleep Apnea - NO CPAP, Other Respiratory Problems/Disorders - ALL WAYS HAVE A RASPY VOICE ACCORDING TO PATIENT Denies: Hx Asthma, Hx Chronic Obstructive Pulmonary Disease (COPD) GI History: Reports: Hx Gastroesophageal Reflux Disease - CONTROL WITH MEDS Denies: Hx Ulcer Musculoskeletal History: Reports: Hx Arthritis - GENERALIZED, Other Musculoskeletal History - SCIATIC PAINS Denies: Hx Osteoporosis Sensory History: Reports: Hx Cataracts - BILATERAL, Hx Contacts or Glasses - GLASSES, Hx Glaucoma - SX OF Denies: Hx Legally Blind, Hx Deafness, Hx Hearing Aid Opthamlomology History: Reports: Hx Cataracts - BILATERAL, Hx Contacts or Glasses - GLASSES, Hx Glaucoma - SX OF Denies: Hx Legally Blind EENT History: Denies: Hx Deafness Neurological History: Reports: Hx Migraine - HX OF, NONE FOR A LONG TIME - Cancer History Cancer Type, Location and Year: RIGHT CANCER 2003 Hx Chemotherapy: No Hx Radiation Therapy: No - Surgical History Surgical History: Yes Surgery Procedure, Year, and Place: TONSILLECTOMY AND ADENOIDECTOMY, [facility]. [place]AL S & [place] [facility] [place] [facility] [place]AROS[place]IC [place]LE[place] [facility] [place] RIGHT BREAST MASTECTOMY WITH SENTINEL LYMPH NODE EXCISION, [facility] [place] [facility] [place]ARDIAC [place] [facility] [place] QUADRUPLE BYPASS, [facility] [employer]GYNECOLOG[employer] Hx Anesthesia Reactions: No - Immunization History Date of Influenza Vaccine: 12/2018 Immunizations Up to Date: Yes Infectious Disease History: No Infectious Disease History: Denies: Hx Hepatitis, Hx Human Immunodeficiency Virus (HIV), Traveled Outside the [place] in Last 30 Days - Family History Known Family History: Positive: Other - DVT Family History: Daughter with DVT - Social History Occupation: Retired Lives: With Family Alcohol Use: Weekly Hx Substance Use: Yes Substance Use Type: Reports: None Hx Tobacco Use: Yes Smoking Status (MU): Former Smoker Type: Cigarettes Amount Used/How Often: 1 PPD FOR 28 YEARS Length of Time of Smoking/Using Tobacco: 15 years Have You Smoked in the Last Year: No Review of Systems Positive: Other - Positive facial pain, blood from both nares Positive: Myalgia - Soreness of left arm, Other - Positive bilateral LE and UE problems at baseline Negative: Syncope All Other Systems Reviewed And Are Negative: Yes Physical Exam - Summary Physical Exam Summary: Constitutional: Well-developed, Well-nourished, Alert. (-) Distressed Skin: Warm, Dry HENT: Normocephalic; Atraumatic. Dried blood at bilateral nares, no septal hematoma, no orbital tenderness. Eyes: Conjunctiva normal Neck: Musculoskeletal ROM normal neck. (-) JVD, (-) Stridor, (-) Tracheal deviation Cardio: Rhythm regular, rate normal, Heart sounds normal; Intact distal pulses; Radial pulses are 2+ and symmetric. (-) Murmur Pulmonary/Chest wall: Effort normal. (-) Respiratory distress, (-) Wheezes, (-) Rales Abd: Soft, (-) tenderness, (-) Distension, (-) Guarding, (-) Rebound Musculoskeletal: (-) Edema Lymph: (-) Cervical adenopathy Neuro: Alert, Oriented x3 Psych: Mood and affect Normal Triage Information Reviewed: Yes Vital Signs On Initial Exam: Initial Vitals Temp Pulse Resp BP Pulse Ox 98.1 F 71 19 224/136 93 02/16/19 16:29 02/16/19 16:29 02/16/19 16:29 02/16/19 16:29 02/16/19 16:29 Vital Signs Reviewed: Yes - Jeane Coma Scale Best Eye Response: 4 - Spontaneous Best Motor Response: 6 - Obeys Commands Best Verbal Response: 5 - Oriented Coma Scale Total: 15 Procedures - Sedation Patient Received Moderate/Deep Sedation with Procedure: No Diagnostics - Vital Signs Vital Signs Temp Pulse Resp BP Pulse Ox 02/16/19 16:29 98.1 F 71 19 224/136 93 - Laboratory Lab Statement: Any lab studies that have been ordered have been reviewed, and results considered in the medical decision making process. - CT Maxillofacial CT CT Interpretation Completed By: Radiologist Summary of CT Findings: Maxillofacial CT IMPRESSION: Mildly comminuted fracture of the nasal arch. This is more prominent on the right than on the left. Mucosal thickening of the ethmoid air cells. The frontal sinuses are clear. Reviewed by ED physician. Cervical Spine CT CT Interpretation Completed By: Radiologist Summary of CT Findings: Cervical Spine CT IMPRESSION: No fracture of the cervical spine is noted. Multilevel degenerative disc disease is noted. Reviewed by ED physician. Brain CT CT Interpretation Completed By: Radiologist Summary of CT Findings: Brain CT IMPRESSION: Atrophy with chronic ischemic White matter change. There is no evidence of intracranial mass or hemorrhage noted. Reviewed by ED physician. Head Injury Course/Dx Course Of Treatment: Patient is here after a mechanical fall. Patient had blood from her bilateral nares with no evidence of septal hematoma. Patient had a CT scan of her brain, cervical spine, maxillofacial which showed a nasal fracture. Patient was given ENT follow-up - Diagnoses Provider Diagnoses: Nasal fracture, Fall Discharge ED - Sign-Out/Discharge Documenting (check all that apply): Patient Departure - Discharge - Discharge Plan Condition: Stable Disposition: HOME Patient Education Materials: Fall Prevention (ED) Referrals: Magy Peng MD [Primary Care Provider] - Bernadette Cortez MD [Medical Doctor] - Additional Instructions: Follow up with an ENT in 1-3 days. Return to the Emergency Department for slurred speech, not acting normally, or repeated vomiting. - Billing Disposition and Condition Condition: STABLE Disposition: Home - Attestation Statements Document Initiated by Scribe: Yes Documenting Scribe: Kelsye Burch Provider For Whom Saundra is Documenting (Include Credential): Berlin Dodson MD Scribe Attestation: Kelsey Mclean, scribed for Berlin Dodson MD on 02/17/19 at 1209. Scribe Documentation Reviewed: Yes Provider Attestation: The documentation as recorded by the Kelsey weeks accurately reflects the service I personally performed and the decisions made by Berlin delarosa MD Status of Scribe Document: Viewed
[2019-02-16 18:54] VITALS: BP 202/96
== END 2019-02-16 18:50 | disposition home or self-care (01) ==
LOC: ED 16:23
DX: S02.2XXA Fracture of nasal bones, initial encounter for closed fracture (principal); W01.10XA Fall on same level from slipping, tripping and stumbling with subsequent striking against unspecified object, initial encounter; Y92.512 Supermarket, store or market as the place of occurrence of the external cause; I10 Essential (primary) hypertension; I25.10 Atherosclerotic heart disease of native coronary artery without angina pectoris; E78.00 Pure hypercholesterolemia, unspecified; K21.9 Gastro-esophageal reflux disease without esophagitis; Z85.9 Personal history of malignant neoplasm, unspecified; Z90.710 Acquired absence of both cervix and uterus; Z90.49 Acquired absence of other specified parts of digestive tract; Z90.11 Acquired absence of right breast and nipple; Z87.891 Personal history of nicotine dependence; Z79.899 Other long term (current) drug therapy; Z88.2 Allergy status to sulfonamides; Z88.8 Allergy status to other drugs, medicaments and biological substances
CPT/HCPCS: 70450; 70486; 72125; 99282